=== PATIENT | female | born 1960 | race Caucasian/White ===

== ENCOUNTER 2023-11-04 05:26 | Observation (INO) | payer BC ==
[2023-10-28 15:32] LABS: BASOPHILS # (AUTO) 0.1 X10'3 (0-0.2); BASOPHILS % (AUTO) 1.7 % (0-1); EOSINOPHILS # (AUTO) 0.3 X10'3 (0-0.9); EOSINOPHILS % (AUTO) 3.2 % (0-6); LYMPHOCYTES # (AUTO) 2.3 X10'3 (1.1-4.8); LYMPHOCYTES % (AUTO) 28.1 % (21-51); MEAN CORPUSCULAR HEMOGLOBIN 30.4 PG (27.0-31.0); MEAN CORPUSCULAR HGB CONC 33.6 g/dL (33.0-36.5); MEAN CORPUSCULAR VOLUME 90.4 FL (78-98); MEAN PLATELET VOLUME 9.3 FL (7.4-10.4); MONOCYTES # (AUTO) 0.7 X10'3 (0-0.9); MONOCYTES % (AUTO) 8.4 % (2-12); NEUTROPHILS # (AUTO) 4.7 X10'3 (1.8-7.7); NEUTROPHILS % (AUTO) 58.6 % (42-75); PRE OP HEMATOCRIT 42.5 % (35.0-45.0); PRE OP HEMOGLOBIN 14.3 g/dL (12.0-16.0); PRE OP PLATELET COUNT 258 X10'3 (140-440); PRE OP WHITE BLOOD COUNT 8.1 10'3 (4.8-10.8); RED BLOOD COUNT 4.69 X10'6 (4.20-5.60); RED CELL DISTRIBUTION WIDTH 14.4 % (11.5-14.5)
[2023-10-28 15:38] LABS: PRE OP PROTIME 10.3 SECONDS (9.0-12.0)
[2023-10-28 15:46] LABS: ALBUMIN 3.7 G/DL (3.4-5.0); ALBUMIN/GLOBULIN RATIO 0.9 (1.1-1.5); ALKALINE PHOSPHATASE 87 IU/L (46-116); BLOOD UREA NITROGEN 12 MG/DL (7-18); BUN/CREATININE RATIO 15.6 (10.0-20.0); CALCIUM 9.4 MG/DL (8.5-10.1); CHLORIDE 104 MMOL/L (99-107); CREATININE 0.77 MG/DL (0.40-0.90); PRE OP ALT 19 U/L (30-65); PRE OP ANION GAP 6 (8-16); PRE OP AST 15 U/L (10-37); PRE OP BILIRUB, TOTAL 0.4 MG/DL (0.0-1.0); PRE OP GLUCOSE 87 MG/DL (70-104); PRE OP POTASSIUM 4.3 MMOL/L (3.4-5.1); PRE OP SODIUM 137 MMOL/L (135-145); TOTAL CARBON DIOXIDE 27.3 MMOL/L (24-32); TOTAL PROTEIN 7.9 G/DL (6.4-8.2); eGFR 76 ML/MIN
[~2023-11-04] VITALS: Ht 162.6 cm; Wt 72.6 kg
[2023-11-04] VITALS (33 sets, daily range): BP systolic 100–140; BP diastolic 43–86; PULSE 61–91; RESP 11–20; TEMP 97.3–98.3; O2SAT 92–100
[~2023-11-04 05:26] MED LIST: NO HOME MEDS
[2023-11-04] MEDS ORDERED: famotidine 20mg tablet PO ONE (05:30)
[2023-11-04] MEDS ORDERED: cefazolin 2gm/D5W 100mL 100 ML IV ONE (05:30)
[2023-11-04] MEDS: ringers solution, lacted 1,000 ML IV SCH ×4 (06:06→19:43)
[2023-11-04] MEDS ORDERED: methylene blue (5mg/ml) 50mg/10ml ampul IV ONE ×2 (06:47→08:15)
[2023-11-04] MEDS ORDERED: BUPIVAcaine/PF 2.5mg/ml (0.25%) 10ml vial ONE (06:47)
[2023-11-04] MEDS ORDERED: HYDROmorphone/PF 0.2 MG/ML SYRINGE IV PRN ×2 (07:35)
[2023-11-04] MEDS ORDERED: ondansetron/PF 4mg/2ml inj IV PRN ×2 (07:35→10:20)
[2023-11-04] MEDS ORDERED: acetaminophen 1,000mg/100ml IV 100 ML IV ONE (07:35)
[2023-11-04] MEDS ORDERED: labetalol 20mg/4ml (5mg/ml) syringe IV PRN (07:35)
[2023-11-04] MEDS ORDERED: proCHLORperazine 10 MG/2 ml inj IV PRN (07:35)
[2023-11-04] MEDS ORDERED: ringers solution, lacted 1,000 ML IV SCH (07:35)
[2023-11-04] MEDS ORDERED: hydrALAZINE 20mg/ml inj. IV PRN (07:35)
[2023-11-04] MEDS ORDERED: morphine 2 MG/ML inj. syringe IV PRN ×2 (07:35→10:20)
[2023-11-04] MEDS ORDERED: ketorolac tromethamine 15mg/ml inj. IV ONE (07:35)
[2023-11-04] MEDS ORDERED: morphine 4 MG/ML inj SYRINge IV PRN (07:35)
[2023-11-04] MEDS ORDERED: sevoflurane 250ml liquid IH ONE (07:40)
[2023-11-04] MEDS ORDERED: cloNIDine hcl/PF 100mcg/ml inj ONE (07:49)
[2023-11-04] MEDS ORDERED: midazolam 1 mg/ML 2ml injection ONE (07:59)
[2023-11-04] MEDS ORDERED: fentaNYL /PF 50mcg/ml 5ml ampule ONE (08:19)
[2023-11-04] MEDS ORDERED: LIDOcaine 2% (20mg/ml) 5ml vial ONE (08:30)
[2023-11-04] MEDS ORDERED: propofol inj 20 ML IV ONE (08:30)
[2023-11-04] MEDS ORDERED: dexamethasone sod phosphate 4mg/ml inj. ONE (08:30)
[2023-11-04] MEDS ORDERED: ROPIVAcaine 0.5% (5mg/ml) 30ml vial ONE (08:30)
[2023-11-04] MEDS ORDERED: ondansetron/PF 4mg/2ml inj ONE (08:30)
[2023-11-04] MEDS ORDERED: ePHEDrine 50MG/ML INJ. ONE (08:31)
[2023-11-04] MEDS ORDERED: BUPIVACAINE liposomal/PF 13.3 MG/ML vial IM ONE ×2 (08:49→09:12)
[2023-11-04] MEDS ORDERED: BUPIVAcaine/PF 2.5mg/ml (0.25%) 10ml vial IJ ONE (09:15)
[2023-11-04] MEDS ORDERED: magnesium hydroxide 30ml (MOM) UD suspension PO PRN (10:20)
[2023-11-04] MEDS ORDERED: bisacodyl 10mg suppository rectal RC PRN (10:20)
[2023-11-04] MEDS ORDERED: normal saline 500ml IV soln 500 ML IV PRN (10:20)
[2023-11-04] MEDS: ceFAZolin 1GM/D5W- ADD-VANTAGE 50 ML IV SCH ×2 (16:18→23:21)
[2023-11-04] MEDS: HYDROcodone/acetaminophen 5mg/325mg tablet PO PRN (20:12)
[2023-11-05] MEDS: ringers solution, lacted 1,000 ML IV SCH (00:57)
[2023-11-05 01:39] VITALS: BP 102/53; PULSE 61; RESP 16; TEMP 98.5; O2SAT 96
[2023-11-05] MEDS: HYDROcodone/acetaminophen 5mg/325mg tablet PO PRN ×2 (05:31→13:13)
[2023-11-05 06:00] VITALS: BP 100/49; PULSE 53; RESP 16; TEMP 97.4; O2SAT 97
[2023-11-05 07:00] VITALS: RESP 18; O2SAT 97
[2023-11-05] MEDS: ceFAZolin 1GM/D5W- ADD-VANTAGE 50 ML IV SCH (09:30)
[2023-11-05 10:00] VITALS: BP 101/53; PULSE 67; RESP 17; TEMP 97.2; O2SAT 95
[2023-11-05 13:13] VITALS: RESP 20
== END 2023-11-05 14:00 | disposition home or self-care (01) ==
LOC: PAS 05:26 → PACU 10:33 → ORTHO 4S 13:49
PROVIDERS: ADMIT Surgery; ATTEND Surgery
DX: C50.912 Malignant neoplasm of unspecified site of left female breast (principal); Z79.899 Other long term (current) drug therapy; Z92.3 Personal history of irradiation
CPT/HCPCS: 19303; 36415; 38525; 80053; 82948; 85025; 85610; 85730; 86885; 86900; 86901; 93005; 93306; 96365; 96366; C9290; G0378; J0131; J0690; J0735; J1100; J1885; J2250; J2405; J2704; J2795; J3010; J3490; J7030; J7120; Q9968; A4215; A4615; A4618; A6253; A6258; A6446; A6449; A7000